=== PATIENT | female | born 1955 | race Caucasian/White ===

== ENCOUNTER → 2024-05-22 10:03 | Outpatient (BNVA) | payer MEDICARE, MEDICAID, SELFPAY | PROVIDERS: PCP Nurse Practitioner Family; Referring Provider Nurse Practitioner Family; Visit Provider Student in an Organized Health Care Education/Training Program | DX: S83.242A Other tear of medial meniscus, current injury, left knee, initial encounter (principal); X50.0XXA Overexertion from strenuous movement or load, initial encounter; Y93.41 Activity, dancing | CPT/HCPCS: 99205 ==

== ENCOUNTER → 2024-07-07 10:53 | Outpatient (BNVA) | payer MEDICARE, MEDICAID, SELFPAY | PROVIDERS: PCP Nurse Practitioner Family; Referring Provider Nurse Practitioner Family; Visit Provider Student in an Organized Health Care Education/Training Program | DX: S83.242D Other tear of medial meniscus, current injury, left knee, subsequent encounter (principal); X50.0XXD Overexertion from strenuous movement or load, subsequent encounter; Y93.41 Activity, dancing | CPT/HCPCS: 99214 ==

== ENCOUNTER 2024-07-22 08:25 | Day surgery (SDC) | payer MEDICARE, MEDICAID, SELFPAY ==
[2024-07-22] VITALS (8 sets, daily range): BP systolic 102–159; BP diastolic 46–80; PULSE 57–76; RESP 14–18; TEMP 36.2–36.5; O2SAT 94–100; BMI 29.2
--- NOTE | 2024-07-22 07:19 | W.ANESPRE ---
General Info Date of Service Date Performed: 07/22/24 Height: 5 ft Weight: 68.039 kg Body Mass Index (BMI): 29.2 Surgical Procedure: Operation Date: 07/22/24 09:55 Proposed Procedure Side Surgeon p Knee Arthroscopy, Partial Medial Meniscectomy Left Julio Vega MD Meds Allergies and Home Medications Allergies Allergy/AdvReac Type Severity Reaction Status Date / Time Sulfa (Sulfonamide Allergy Other (See Verified 07/22/24 08:58 Antibiotics) Comment) sulfamethoxazole (From Allergy Other (See Verified 07/22/24 08:58 Bactrim) Comment) trimethoprim (From Bactrim) Allergy Other (See Verified 07/22/24 08:58 Comment) lactose AdvReac Mild Diarrhea Verified 07/22/24 08:58 Home Medication ?Medication ?Instructions ?Recorded L.acidophil,salivari-Bifido 1 cap PO DAILY 05/22/24 bifidum-Strep thermoph 175 mg capsule (Acidophilus Probiotic Blend) albuterol 90 mcg/actuation aerosol 90 mcg inhalation DIRECTED 05/22/24 inhaler ascorbic acid (vitamin C) 1,000 mg 1 g PO DAILY 05/22/24 capsule biotin 2,500 mcg chewable tablet 2,500 mcg PO DAILY 05/22/24 calcium 315 mg (as 1 tab PO BID 05/22/24 citrate)-vitamin D3 6.25 mcg (250 unit) tablet (Citracal + Vitamin D Maximum) cholecalciferol (vitamin D3) 125 125 mcg PO DAILY 05/22/24 mcg (5,000 unit) capsule coenzyme Q10 100 mg capsule (Co 100 mg PO DAILY 05/22/24 Q-10) elderberry fruit 50 mg/0.5 mL oral 50 mg PO DIRECTED 05/22/24 drops fexofenadine 180 mg tablet 180 mg PO DAILY 05/22/24 fluticasone propionate 50 2 inh inhalation BID 05/22/24 mcg/actuation blister powder for inhalation levothyroxine 75 mcg capsule 75 mcg PO DAILY 05/22/24 montelukast 10 mg tablet 10 mg PO DAILY PRN 05/22/24 selenium 200 mcg capsule 200 mcg PO DAILY 05/22/24 vit C,E,zinc,copper-iptwo7n 250 1 cap PO DAILY 05/22/24 mg-lutein 5 mg-zeaxanthin 1 mg capsule (50 Plus Adult Eye Health) zinc acetate 50 mg (zinc) capsule 50 mg PO DAILY 05/22/24 (Galzin) benzonatate 100 mg capsule 100 mg PO BID-TID PRN 07/07/24 flaxseed oil 1,000 mg capsule 1,000 mg PO DAILY 07/07/24 glucosamine 750 jx-izjwfeqfhtf-qne 2 tab PO DAILY 07/07/24 no1 625 mg-C 30 mg-celi 1 mg tablet (Dsvtltgursb-Yggblvrwnuc-DYP) magnesium 250 mg tablet 250 mg PO DAILY PRN 07/07/24 multivitamin 1 tab PO DAILY 07/07/24 turmeric 400 mg capsule 400 mg PO DAILY 07/07/24 Current Visit Medications: Current Medications Generic Name Dose Route Start Last Admin Trade Name Freq PRN Reason Stop Dose Admin Acetaminophen 1,000 mg 07/22/24 06:00 Acetaminophen 500 Mg Tab PO 07/22/24 23:59 PREOP TAJ Ringer's Solution 1,000 mls @ 80 mls/hr 07/22/24 06:00 IV 07/22/24 23:59 INFUSION TAJ Cefazolin Sodium/Dextrose 2 gm in 50 mls @ 100 mls/hr 07/22/24 06:00 Ancef Duplex IVPB 07/22/24 23:59 PREOP TAJ IV Miscellaneous Supplies 1 each 07/22/24 06:00 Iv Access IV 07/22/24 23:59 DIRECTED TAJ Sodium Chloride 0 ml 07/22/24 06:00 Normal Saline Flush 10 Ml Syr IV 07/22/24 23:59 PRN PRN Sodium Chloride 0 ml 07/22/24 06:00 Normal Saline 10 Ml Vial IJ 07/22/24 23:59 DIRECTED PRN Sterile Water 0 ml 07/22/24 06:00 Water,Injection,Sterile 10 Ml Vial IJ 07/22/24 23:59 DIRECTED PRN PFSH Active Problems Active Problems: Problem Status Onset Code Tear of medial meniscus of left knee Acute S83.242A Spinal stenosis Acute M48.00 Intrinsic asthma Acute J45.909 Incomplete uterovaginal prolapse Acute N81.2 Hypothyroidism Chronic E03.9 Ruthie thyroiditis Acute E06.3 Dysthymia Acute F34.1 Chronic constipation Acute K59.09 Allergic rhinitis Acute J30.9 Benign neoplasm breast skin Acute D23.5 Medical History Medical History (Updated 07/18/24 @ 11:30 by Julius Sanford) Osteoporosis Surgical History Surgical History History of tonsillectomy History of appendectomy Tobacco Smoking/Tobacco Use Status: Never Passive smoking exposure: Yes Alcohol Alcohol Intake: never Substance Use Substance use: Never Substance use type: does not use Vital Signs and Lab Results Lab Results Blood Type / Crossmatch: No Data to Display Complete Blood Count: No Data to Display Complete Metabolic Panel: No Data to Display Liver Function Panel: No Data to Display Coagulation Panel: No Data to Display Cardiac Panel: No Data to Display Arterial Blood Gas: No Data to Display Venous Blood Gas: No Data to Display Pancreas Panel: No Data to Display Thyroid Panel: No Data to Display Infectious Disease: No Data to Display Blood Cultures: No Data to Display Toxicology Panel: No Data to Display Anesthesia Assessment and Plan Anesthesia History Personal History: No History of Anesthesia Complications Family History: No Family History of Anesthesia Complications Exercise Tolerance Exercise Tolerance: Metabolic Equivalents>4 Cardiac & Pulmonary Exam Cardiac Exam: Normal S1/S2 Heart Sounds Pulmonary Exam: Clear Bilateral Breath Sounds Implantable Cardiac Device Does patient have a Pacemaker or an ICD?: No Airway Exam Known Difficult Airway: No Mallampati Class: 3 Mouth Opening: Normal (> 3cm) Thyromental Distance: Greater than 3 cm Neck Range of Motion: Full ROM Neck Circumference: Normal Teeth Condition: Normal Dentition ASA Classification ASA Score: ASA 2 Emergency Case?: No NPO Status NPO Status: NPO Clears >2 hours, Solids >8 hours Anesthesia Plan Resuscitation Status: Full Code Anesthesia Technique: General Anesthesia Airway Planned: Endotracheal Tube Pain Management: Surgeon and patient request nerve block Monitors Used: Standard Monitors Preoperative Comments:: 69 yo female for knee scope. She is extremely needle phobic and nervous for the procedure. Sig PMHx: RAD (albuterol, fluticasone, Montelukast. Hasn't taken any of these in a while), hypothyroid/ruthie thyroiditis (levothyroxine), never smoker. Denies major heart. Approp NPO, denies GERD, is currently not hungry at all and feels constipated (will use ETT). Discussed regional anesthesia and that I normally consent for a rescue block for these procedures, but she requests that this be done while she is under anesthesia due to her severe needle phobia. We discussed that there is an increase risk of nerve injury when performed under GA and she understands this, but would like to proceed with it under anesthesia.
[2024-07-22] MEDS: Lactated Ringers 1,000 ML 80 ML IV (09:11)
[2024-07-22] MEDS: Acetaminophen 500 MG TAB 1000 MG PO (09:15)
--- NOTE | 2024-07-22 09:47 | PDOC.DSDIS_ITS ---
Date of service: 07/22/24 Discharge Plan Disposition Patient Disposition: Home Condition: Good Discharge Details Reason For Visit: Left knee medial meniscus tear Attending Provider: Julio Vega Primary Care Provider: Rosa Martinez Home Meds and New Rx's Prescriptions: New acetaminophen 500 mg tablet 500 mg PO Q6H PRN (Reason: pain) Qty: 60 2RF hydrocodone-acetaminophen 5-325 mg tablet 1 tab PO Q6H PRN (Reason: severe pain) Qty: 6 0RF Rx Instructions: Take one tablet up to every 6 hours as needed for severe postoperative pain ibuprofen 600 mg tablet 600 mg PO TID PRN (Reason: pain) Qty: 60 0RF Continued levothyroxine 75 mcg capsule 75 mcg PO DAILY calcium citrate-vitamin D3 [Citracal + D Maximum] 315 mg-6.25 mcg (250 unit) tablet 1 tab PO BID L.acidoph,saliva-B.bif-S.therm [Acidophilus Probiotic Blend] 175 mg capsule 1 cap PO DAILY fexofenadine 180 mg tablet 180 mg PO DAILY fluticasone propionate 50 mcg/actuation blister with device 2 inh inhalation BID montelukast 10 mg tablet 10 mg PO DAILY PRN 50 Plus Adult Eye Health 250-5-1 mg capsule 1 cap PO DAILY coenzyme Q10 [Co Q-10] 100 mg capsule 100 mg PO DAILY ascorbic acid (vitamin C) 1,000 mg capsule 1 g PO DAILY cholecalciferol (vitamin D3) 125 mcg (5,000 unit) capsule 125 mcg PO DAILY Galzin 50 mg (zinc) capsule 50 mg PO DAILY selenium 200 mcg capsule 200 mcg PO DAILY biotin 2,500 mcg tablet,chewable 2,500 mcg PO DAILY elderberry fruit 50 mg/0.5 mL drops 50 mg PO DIRECTED albuterol 90 mcg/actuation aerosol 90 mcg inhalation DIRECTED cqdmdmfj-bqzup-ycb7-C-celi-bor [Nfmzosmz-Zlhtt-EII(with boron)] 415-293-82-1 mg tablet 2 tab PO DAILY multivitamin Tablet 1 tab PO DAILY turmeric 400 mg capsule 400 mg PO DAILY flaxseed oil 1,000 mg capsule 1,000 mg PO DAILY Rx Instructions: administer with a meal benzonatate 100 mg capsule 100 mg PO BID-TID PRN magnesium 250 mg tablet 250 mg PO DAILY PRN Discharge Instructions Stand Alone Forms: [facility] Knee Arthroscopy Referrals: Julio Vega MD [ [facility] STAFF PHYSICIAN] - Equipment/Supplies: Partial Weight Bearing Crutches Activity:: Elevate Remove Dressings/Wound Care:: 72 hours Shower/Bathe:: 72 hours Discharge Orders Discharge Orders: Discharge Order (Routine); Ordered 07/22/24 Ordered By: Antonia Hollins
[2024-07-22] MEDS: ceFAZolin 2 GM/50 ML BAG IVPB (10:04)
--- NOTE | 2024-07-22 10:32 | W.ANESNERVE ---
Nerve Block Single Injection Procedure Date and Time Date Performed: 07/22/24 Procedure Start: 09:17 Location Where Procedure Performed Procedure Location: Operating Room Procedure Stop: 09:22 Reason Performed: Postoperative Analgesia Requesting Provider: Julio Vega Timeout Performed Timeout Performed: Yes Monitoring Used ECG, Blood Pressure and SpO2 Sterility Sterility: Hand Hygiene, Surgical Cap, Surgical Mask, Sterile Gloves and Chlorhexidine Sedation Given During Procedure Sedation Given (Indicate Dose Given): No Sedation given Patient Mental Status Patient Mental Status: Performed under general anesthesia Nerve Block 1st Nerve Block: Laterality: Left Block Type: Adductor Canal Ultrasound Image Saved?: Yes Needle / Catheter Used: 100mm SonoPlex II Local Anesthetic Bolus (Indicate Dose Given): Bupivacaine 0.25% Dose:: 10 mL Additives (Indicate Dose Given): None Ultrasound: Sterile probe cover and gel used Nerve Stimulator: Not Used Paresthesia: None Procedure Tolerated: No Complications Procedure Outcome: Successful Performed By: Sourav Corralse
[2024-07-22] MEDS: EPINEPHrine 10 MG/10 ML ML (10:39)
[2024-07-22] MEDS: Bupivacaine 0.25% Pres-Free 30 ML VIAL (10:45)
--- NOTE | 2024-07-22 11:18 | W.PM.OP ---
Operative Note Operative Note PRE-OP DIAGNOSIS: Left knee medial meniscal tear POST-OP DIAGNOSIS: same PROCEDURE: Left knee partial medial meniscectomy SURGEON: Julio Vega ANESTHESIA TYPE: General LMA/ETT Refer to Anesthesia Record ESTIMATED BLOOD LOSS: 0 PATHOLOGY: none sent COMPLICATIONS: None Patient was transported to: PACU Patient's condition: stable Indications: I have seen Tomeka in clinic for symptoms of a meniscus tear. This was confirmed based on MRI and exam findings. Nonoperative measures were exhausted but disability and pain persisted. I discussed knee arthroscopy with meniscal intervention with the patient. I reviewed the risks of the procedure to include, but not limited to, bleeding, infection, pain, stiffness, damage to nerves or vessels, recurrence, blood clot. Despite these risks, the patient elected to proceed. 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 The consent was reviewed with the patient and signed. The history and physical was updated. All questions were answered. Tomeka was taken back to the operating room. The patient was placed into the supine position on the operating room table. A nonsterile tourniquet was placed high onto the leg but not used. All bony prominences were well padded. Prophylactic antibiotics in the form of Cefazolin were administered. The left leg was then prepped with Chloraprep and draped in a standard fashion with stockinette and extremity drape. A timeout to confirm correct identity, side and site, procedure, allergies, anesthesia, and medical concerns was performed. A standard lateral portal was made at the lateral border of the patella tendon in line with the inferior pole of the patella, soft spot. The skin and deep tissue was incised sharply and the blunt trochar was inserted atraumatically. A diagnostic arthroscopy was performed and the findings are listed above. The suprapatellar pouch had no significant inflammatory change. The patellofemoral articulation showed some mild grade II chondromalacia of the patellar apex as well as good tracking. The lateral gutter had no loose bodies and the medial gutter had no loose bodies. The knee was brought into some valgus stress in extension to open the medial compartment. A medial portal was made, localized by a spinal needle. The portal was created with an #11 blade through skin and capsule under direct visualization avoiding any meniscal injury. A probe was then inserted into the medial compartment. The medial compartment was fully inspected. The chondral surface of the tibia showed minimal chondromalacia and the surface of the femur showed grade II chondromalacia of the central weightbearing portion of the femur. The medial meniscus had a complex tear with the primary radial component of the posterior horn with some undersurface tearing. After evaluation, the meniscus was debrided down to a stable base using a series of biters and arthroscopic hayden. It was probed afterwards to confirm that the tear had been removed and the meniscus was stable. The notch was then inspected which showed an intact ACL and an intact PCL. The leg was then brought into a figure of 4 position. The lateral compartment was fully inspected with the arthroscope and a probe. The chondral surface of the lateral femur showed no significant chondromalacia. The chondral surface of the lateral tibia showed no significant chondromalacia. The lateral meniscus had no meniscal tear. The arthroscope was brought back into the suprapatellar pouch and the leg was in full extension. The knee was thoroughly irrigated with the arthroscopic fluid on high flow and pressure. Inflow was stopped and excess fluid was removed. The wounds were closed with 4-0 Nylon. They were dressed with Xeroform, 4x4 gauze, ABD pad, Kerlix and an MARGARET wrap. A cryo-cuff was applied. The patient tolerated the procedure well and was returned to the Same Day Surgery area in a stable condition suffering no known complication. Date of Procedure: 07/22/24
--- NOTE | 2024-07-22 11:18 | W.ANESPOSTOP ---
Postoperative Evaluation Date, Time and Location Date Performed: 07/22/24 Time Performed: 11:18 Patient Location: PACU Vital Signs Most Recent Imported Vital Signs: Most Recent Vital Signs Temp Pulse Resp BP Pulse Ox 36.4 C L 76 14 110/54 L 95 07/22/24 11:07 07/22/24 11:07 07/22/24 11:07 07/22/24 11:07 07/22/24 11:07 Pain Score Most Recent Pain Score: Most Recent Pain Score Pain Level 0 07/22/24 11:07 Assessment Mental Status: Awake (Alert & Oriented to Patient Baseline) Airway and Respiratory Function: Patent airway with normal (patient baseline) respiratory exam Cardiovascular Function: Hemodynamically Stable Hydration Status: Adequately Hydrated Nausea & Vomiting: No Nausea or Vomiting Pain: Pain is tolerable per patient Peripheral Nerve Block: Regional nerve block not resolved at time of post operative discharge
== END 2024-07-22 12:52 | disposition home or self-care (01) ==
PROVIDERS: PCP Nurse Practitioner Family; Visit Provider Student in an Organized Health Care Education/Training Program
PROC: (CPT 29870; principal; 2024-07-22 09:45)
DX: S83.242A Other tear of medial meniscus, current injury, left knee, initial encounter (principal); X58.XXXA Exposure to other specified factors, initial encounter; G89.18 Other acute postprocedural pain
CPT/HCPCS: 29881; 64447; J0131; J0665; J0690; J1100; J1805; J2405; J2704

== ENCOUNTER → 2024-08-04 13:10 | Outpatient (BNVA) | payer MEDICARE, SELFPAY | PROVIDERS: PCP Nurse Practitioner Family; Referring Provider Nurse Practitioner Family; Visit Provider Student in an Organized Health Care Education/Training Program | DX: Z47.89 Encounter for other orthopedic aftercare (principal); S83.242D Other tear of medial meniscus, current injury, left knee, subsequent encounter; X58.XXXD Exposure to other specified factors, subsequent encounter | CPT/HCPCS: 99024 ==

== ENCOUNTER → 2024-09-01 12:52 | Outpatient (BNVA) | payer MEDICARE, SELFPAY | PROVIDERS: PCP Nurse Practitioner Family; Referring Provider Nurse Practitioner Family; Visit Provider Student in an Organized Health Care Education/Training Program | DX: S83.242D Other tear of medial meniscus, current injury, left knee, subsequent encounter (principal); X58.XXXD Exposure to other specified factors, subsequent encounter | CPT/HCPCS: 99024 ==

== ENCOUNTER → 2024-10-24 08:07 | Outpatient (BNVA) | payer MEDICARE, MEDICAID, SELFPAY | PROVIDERS: PCP Nurse Practitioner Family; Referring Provider Nurse Practitioner Family; Visit Provider Physician Assistant | DX: S83.242A Other tear of medial meniscus, current injury, left knee, initial encounter (principal); X50.0XXA Overexertion from strenuous movement or load, initial encounter | CPT/HCPCS: 99213 ==

== ENCOUNTER 2025-02-24 14:58 | Outpatient (REF) | payer MEDICARE, MEDICAID, SELFPAY ==
[2025-02-24 17:06] LABS: Creatinine,Urine 41.2 mg/dL
[2025-02-24 17:46] LABS: Creatinine,24hr Ur 1.03 g/24hr (0.60-1.80); Total Volume 2500 mL
[2025-02-25 09:27] LABS: Calcium Urine 9.6 mg/dL (See Note); Timed Urine Volume 2500 mL
== END 2025-02-24 14:59 | disposition home or self-care (01) ==
LOC: LBN 14:58
PROVIDERS: PCP Nurse Practitioner Family; Visit Provider Nurse Practitioner Primary Care
DX: M81.0 Age-related osteoporosis without current pathological fracture (principal)
CPT/HCPCS: 81050; 82340; 82570